=== PATIENT | female | born 1930 | race Caucasian/White ===

== ENCOUNTER 2016-10-17 12:04 | Emergency (ER) | payer MEDICARE ==
[2016-10-17 12:43] LABS: ABSOLUTE NEUTROPHIL COUNT 4.4 K/mm3 (1.8-7.7); BASO % 0.4 % (0.2-1.0); EOS # 0.1 (0.0-0.5); EOS % 1.8 % (0.9-2.9); HEMATOCRIT 26.1 % (37.0-47.0); HEMOGLOBIN 8.3 gm/l (12.0-16.0); IMM NEUT% 0.4 % (0-1); LYMPH # 1.8 (1.0-4.8); LYMPH % 25.6 % (15-45); MEAN CELL VOLUME 95.3 fl (81.0-99.0); MEAN CORPUSCULAR HEMOGLOBIN 30.3 pg (27.0-31.0); MEAN CORPUSCULAR HGB CONC 31.8 g/dl (33.0-37.0); MEAN PLATELET VOLUME 10.6 fl (7.4-10.4); MONO # 0.7 (0.0-0.8); MONO % 9.8 % (4-12); PLATELET COUNT 198 K/mm3 (130-400); RED CELL DISTRIBUTION WIDTH 14.1 % (11.5-14.5)
[2016-10-17 13:03] LABS: ALBUMIN 3.6 gm/dL (3.5-5.7); CALCIUM 8.8 mg/dL (8.6-10.3); MAGNESIUM 2.6 mg/dL (1.9-2.7)
[2016-10-17 13:51] LABS: HYPOCHROMIA 2+; PLATELET ESTIMATE NORMAL (NORMAL)
[2016-10-17 14:32] LABS: SPECIFIC GRAVITY 1.015 (1.001-1.030); URINE BILIRUBIN NEGATIVE (NEGATIVE); URINE BLOOD TRACE (NEGATIVE); URINE GLUCOSE (UA) NEGATIVE (NEGATIVE); URINE LEUKOCYTE ESTERASE TRACE (NEGATIVE); URINE NITRITE NEGATIVE (NEGATIVE); URINE PROTEIN NEGATIVE (NEGATIVE); URINE UROBILINOGEN NORMAL (0-1 mg/dl)
[2016-10-17 14:34] LABS: URINE APPEARANCE CLEAR; URINE COLOR YELLOW
[2016-10-17 14:44] LABS: URINE BACTERIA 3+; URINE RBC 0-1 /hpf
== END 2016-10-17 16:15 | disposition home or self-care (01) ==
LOC: ED 12:04
DX: R94.4 Abnormal results of kidney function studies (principal); I48.91 Unspecified atrial fibrillation; I10 Essential (primary) hypertension; E07.9 Disorder of thyroid, unspecified